=== PATIENT | female | born 1985 | race African-American/Black ===

== ENCOUNTER 2018-12-13 12:23 | Inpatient (IN) | payer OTHER ==
[~2018-12-13] VITALS: Ht 157.5 cm; Wt 79.8 kg
[~2018-12-13 12:23] MED LIST: FLEXERIL PO; MACROBID 100 M100 M1 PO; NORCO 5-325 TA1 EACH PO; PHENAZOPYRIDIN200 M2 PO; PREDNISONE 20 M20 MG PO; VENTOLIN HFA 1818 GM INH; ZPAK PO
[2018-12-13 12:24] VITALS: BP 124/85
[2018-12-13 14:26] LABS: ABSOLUTE NEUTROPHILS 5.5 thou/uL (1.4-8.2); EOSINOPHILS 0.7 % (0.0-3.0); HEMATOCRIT 39.4 % (37.0-47.0); HEMOGLOBIN 13.2 gm/dL (12.0-15.0); LYMPHOCYTES 21.7 % (24.0-44.0); MCHC 33.6 g/dL (28.0-37.0); MCV 86.3 fL (80.0-100.0); MONOCYTES 9.2 % (1.0-8.0); PLATELET COUNT 274 thou/uL (150-400); POLYS 67.4 % (36.0-66.0); RBC 4.56 mil/uL (4.20-5.00); RDW 13.6 % (10.5-14.5); WBC 8.1 thou/uL (4.0-11.0)
[2018-12-13 14:35] LABS: CALCIUM 9.9 mg/dL (8.5-10.1); CREATININE 0.8 mg/dL (0.6-1.0); POTASSIUM 3.7 mmol/L (3.5-5.1)
[2018-12-13 14:41] LABS: ALBUMIN 4.4 g/dL (3.4-5.0); TOTAL BILIRUBIN 0.8 mg/dL (<0.1-1.0); TOTAL PROTEIN 8.2 g/dL (6.4-8.2)
[2018-12-13 15:38] LABS: URINE BILIRUBIN NEGATIVE (Negative); URINE BLOOD TRACE (Negative); URINE CLARITY CLEAR; URINE COLOR YELLOW; URINE GLUCOSE-RANDOM* NEGATIVE (Negative); URINE KETONES 1+ (Negative); URINE LEUKOCYTES-REFLEX TRACE (Negative); URINE NITRITE-REFLEX NEGATIVE (Negative); URINE PROTEIN (DIPSTICK) NEGATIVE (Negative); URINE UROBILINOGEN 0.2 E.U./dl (0.2-1.0)
[2018-12-13 18:26] VITALS: BP 154/88
[2018-12-13 19:45] VITALS: BP 150/94
[2018-12-13 20:00] VITALS: BP 150/94
[2018-12-14 04:00] VITALS: BP 120/67
--- NOTE | 2018-12-14 05:23 | NUR ---
PT CAME TO CCU AT 12/13/181939 FOR CRP 14.2 H AND POSSIBLE MENINGITIS. . PT COMPLAINED OF HEADACHE 8/10 AND LOWER BACK PAIN 7.5/10. PT'S PAIN WAS TREATED. PT HAD NO FEVER OVERNIGHT. PT RESTED WELL THROUGHOUT THE NIGHT. ID NOTIFIED AND INFORMED ABOUT THE PT CONDITION. CONTINUE TO MONITOR.
[2018-12-14 08:10] VITALS: BP 121/80
[2018-12-14 11:05] VITALS: BP 120/70
--- NOTE | 2018-12-14 15:37 | NUR ---
ASSESSMENT CHARTED. PT ALERT AND ORIENTED. VSS. IV ABX GIVEN ORDERED. SEEN BY DR. ROBERTS AND DR. ARREAGA. ORDERS NOTED. NO CONCERNS AT THIS TIME WILL CONTINUE TO MONITOR.
[2018-12-14 16:15] VITALS: BP 147/97
[2018-12-14 21:00] VITALS: BP 133/76
[2018-12-14 23:15] VITALS: BP 109/83
--- NOTE | 2018-12-15 04:05 | NUR ---
ASSUMED PT CARE AT 1900. PT HAD C/O LOWER BACK PAIN. GAVE PRN MEDICATIONS. PT HAD NO C/O OF SOB OR CHEST PAIN. PT IS PROGRESSING TOWARDS PLAN OF CARE. ASSESSMENT CHARTED. WILL CONTINUE TO MONITOR.
[2018-12-15 04:43] VITALS: BP 130/78
[2018-12-15 08:17] VITALS: BP 127/77
[2018-12-15] MEDS ORDERED: CEFDINIR300 MG PO (12:47)
[2018-12-15 12:53] VITALS: BP 127/77
--- NOTE | 2018-12-15 13:05 | NUR ---
ASSESSMENT CHARTED. PT ALERT AND ORIENTED. VSS. REPORT FEELING MUCH BETTER TODAY. SEEN BY DR. ARREAGA AND DR. ROBERTS. ORDERS GIVEN TO DISCHARGE PT TO HOME. DISCHARGE INSTRUCTIONS GIVEN TO PT. PT VERBERLISED UNDERSTANDING.
[2018-12-15 13:11] LABS: HIV ANTIBODY Non Reactive (Non Reactive)
[2018-12-15 18:06] LABS: HEPATITIS B SURFACE AG Negative (Negative); HEPATITIS C VIRUS AB <0.1 (0.0-0.9)
--- NOTE | 2018-12-15 19:01 | HC ---
[facility] [place] [address] CONSULTATION Name: CARLOS ALBERTO PUENTE Room #: 208-P [facility] IN M.R.#: [id number] Admission: 12/13/18 Attend Phys: Fiorella Arredondo MD Discharge: 12/15/18 Date of : 83 Report #: [id number] THIS REPORT FOR: //name// CC: KITTY physician/PCP Fiorella BATISTA PCP DATE OF SERVICE: 12/14/2018 INFECTIOUS DISEASE CONSULTATION REASON FOR CONSULTATION: I was asked to evaluate concerning fever. HISTORY OF PRESENT ILLNESS: The patient is a 33-year-old previously healthy individual, presents with acute onset of headache and low back pain. This was associated with onset of mild chills and felt feverish. She did not take her temperature. Because of the chills, she presented to the Emergency Room for further evaluation. She has had temperature up to 37.9 degrees. No further chills since her admission. White count was normal. Chest x-ray was clear. Urinalysis was unremarkable and CT of her low back was unremarkable. She notes no nausea, vomiting or diarrhea. There has been no dysuria or frequency. There has been no flank pain. She does have some low back discomfort, although she noticed onset after she was lifting some boxes. She has had no radicular features. No issues with increased pain with bowel movement. The patient does smoke cigarettes and drinks occasional alcohol as well. Does snort cocaine. Denies any other HIV risk factors. It was actually in a study 3 months ago and was HIV, hepatitis negative per her report. Over the last 12 hours, she has noticed improvement. Headache is resolved. Still has some low back discomfort. She has had no travel. No animal exposure or other exposures to ill persons. ALLERGIES: None known. MEDICATIONS: None prior to her admission, currently on vancomycin and ceftriaxone. PAST MEDICAL HISTORY: Heart murmur and hernia repair. FAMILY HISTORY: Noncontributory. SOCIAL HISTORY: As noted above, lives with her brother. REVIEW OF SYSTEMS: Ten-point was negative other than what has been described above. PHYSICAL EXAMINATION: VITAL SIGNS: She is afebrile, hemodynamically stable. [facility] [address] [place] [address] CONSULTATION Name: CARLOS ALBERTO PUENTE Room #: 208-P [facility] IN [facility]#: [id number] Admission: 12/13/18 Attend Phys: Fiorella Arredondo MD Discharge: 12/15/18 Date of : 83 Report #: [id number] GENERAL: She was obese. SKIN: Without rash. She had tattoos. No palpable adenopathy. HEENT: Eyes, without scleral icterus. Mouth without mucositis. NECK: Supple. BACK: Tender, mildly in the lower lumbar region. There is no percussion tenderness. Straight leg raises were normal. LUNGS: Clear. HEART: Regular, without murmur. ABDOMEN: Soft and nontender. She had some fullness in her upper abdomen, but it was a difficult exam due to her obesity. There was no tenderness. GENITOURINARY: External genitalia and rectal examination not performed. EXTREMITIES: Without clubbing, cyanosis or edema. NEUROLOGIC: Cranial nerves were intact. Strength in upper and lower extremities was normal. Sensation upper and lower extremities was normal. Deep tendon reflexes are normal. Mood normal. LABORATORY STUDIES: Hemoglobin 13, WBC 8.1 and platelet count 274,000. Differential unremarkable. Sodium 135, potassium 3.7, bicarbonate 26, creatinine 0.8. Liver function tests normal. C-reactive protein was 14. Urinalysis unremarkable other than 1+ ketones and trace blood. Influenza antigen was negative. Chest x-ray clear. There is a C7, spina bifida as an incidental finding. CT of the cervical, thoracic and lumbar spine unremarkable. IMPRESSION: A 33-year-old with low-grade fever, headache without other clinical findings of infection. Her white count is normal. She seems better after 24 hours. This may be viral process and we will need further time to sort this out. Encouraging that she feels better today. CT imaging shows no evidence of gross abnormality in the lumbar spine. May well be a musculoskeletal injury from lifting versus related to her infectious presentation. RECOMMENDATIONS: We will continue ceftriaxone another 24 hours. Await cultures. I think it is reasonable to discontinue the vancomycin. I do not think she needs lumbar puncture at this point. <ELECTRONICALLY SIGNED> By: Adrian Velez MD 12/15/18 1901 [id number] Adrian Velez MD /nt
== END 2018-12-15 13:35 | disposition home or self-care (01) | DRG 866 ==
LOC: ER 12:23 → EROBS 17:24 → 2N 17:24 → ENTRNSPT 12-15 13:00 → EDTRNSPT 12-15 13:06 → EDTRNSPTSTS 12-15 13:25 → 2N 12-15 13:35
PROVIDERS: Emergency Medicine; Specialist; ADMIT Internal Medicine
DX: B34.9 Viral infection, unspecified (principal); R65.10 Systemic inflammatory response syndrome (SIRS) of non-infectious origin without acute organ dysfunction; F17.210 Nicotine dependence, cigarettes, uncomplicated; E66.01 Morbid (severe) obesity due to excess calories; Z79.899 Other long term (current) drug therapy; Z68.32 Body mass index [BMI] 32.0-32.9, adult
CPT/HCPCS: 10194

== ENCOUNTER 2020-11-23 10:38 | Emergency (ER) | payer OTHER ==
[~2020-11-23] VITALS: Ht 157.5 cm; Wt 90.7 kg
[~2020-11-23 10:38] MED LIST changes: +CEFDINIR300 MG PO
[2020-11-23 12:12] LABS: URINE BILIRUBIN NEGATIVE (Negative); URINE BLOOD 3+ (Negative); URINE CLARITY CLOUDY; URINE COLOR YELLOW; URINE GLUCOSE-RANDOM* NEGATIVE (Negative); URINE KETONES TRACE (Negative); URINE LEUKOCYTES-REFLEX TRACE (Negative); URINE NITRITE-REFLEX NEGATIVE (Negative); URINE PROTEIN (DIPSTICK) 2+ (Negative); URINE SPECIFIC GRAVITY >= 1.030 (1.005-1.035)
[2020-11-23] MEDS ORDERED: FLAGYL500 M1 PO (13:04)
[2020-11-23] MEDS ORDERED: SPRINTEC1 EACH PO (13:16)
[2020-11-23 13:36] VITALS: BP 128/81
[2020-11-23 13:54] LABS: CASTS None Seen /LPF (None Seen); CRYSTALS None Seen /LPF (None Seen); SQUAMOUS 4-10 Moderate /LPF (0-3)
[2020-11-23 13:55] LABS: URINE RBC >20 Many /HPF (NONE SEEN)
[2020-11-23 13:56] LABS: BACTERIA-REFLEX 1-9 Few /HPF (None Seen)
[2020-11-23 13:57] LABS: URINE WBC-REFLEX 6-15 Few /HPF (0-5)
== END 2020-11-23 13:37 | disposition home or self-care (01) ==
LOC: ER 10:38
PROVIDERS: Emergency Medicine
DX: A59.9 Trichomoniasis, unspecified (principal); N93.8 Other specified abnormal uterine and vaginal bleeding; F17.210 Nicotine dependence, cigarettes, uncomplicated; Z98.890 Other specified postprocedural states